=== PATIENT | female | born 1955 | race Caucasian/White ===

== ENCOUNTER 2020-02-06 08:24 | Day surgery (SDC) | payer MEDICARE, SELFPAY ==
[2020-02-01 13:50] VITALS: BMI 29.5
[2020-02-06] MEDS: sodium chloride 0.9% 1,000 ML 30 ML IV (08:46)
--- NOTE | 2020-02-06 08:55 | ANES.PREANE2 ---
Pre-Anesthetic Assessment Pre-Anesthetic Assessment: Height/Weight: Height 1.75 m Weight 90.718 kg Proposed Procedure: Operation Date: 02/06/20 10:15 Proposed Procedures p Colonoscopy 37680 Z12.11(Not Applicable) - Pancho Vaughan MD Was Beta Geraldo taken within 24 hours: Yes Last intake: Intake Last Liquid Date 02/06/20 Last Liquid Time 07:10 Last Solid Date 02/04/20 Social: Social History: Tobacco and No alcohol Exam: Pre-Anes Outpt Exam: alert, oriented x 3, clear to auscultation bilaterally and regular rate & rhythm Airway: Submandibular: WNL Cervical ROM: WNL MP: 2 Dentition: Full Pulmonary: Pulmonary: COPD CV/HEM: CV/HEM: None reported : : None reported Hepatic: Hepatic: None reported GI: GI: None reported Metabolic: Metabolic: Thyroid Musc/skel: Musc/skel: None reported Neuropsych: Neuropsych: None reported Anesthetic Plan: ASA status: 2 Anesthesia: MAC Risk of > 500 ml blood loss (7ml/kg in children): No Meds/Allergies Current Medications: Current Medications Generic Name Dose Route Start Last Admin Trade Name Freq PRN Reason Stop Dose Admin Sodium Chloride 1,000 mls @ 30 ml s/hr 02/06/20 08:45 02/06/20 08:46 Sodium Chloride 0.9% IV 02/07/20 08:44 30 mls/hr .Q24H RAFA Administration Data Anesthesia Cardiac Studies: No Data to Display
--- NOTE | 2020-02-06 11:01 | W.PM.OPSFHP ---
Same Day Surgery H&P Indication for Procedure/HPI DATE OF PROCEDURE: February 06, 2020 CHIEF COMPLAINT/INDICATIONFOR SURGICAL PROCEDURE: Screening colonscopy PREOP DIAGNOSIS: Screening colonoscopy PLANNED PROCEDRUE: Operation Date: 02/06/20 10:15 Proposed Procedures p Colonoscopy 63707 Z12.11(Not Applicable) - Pancho Vaughan MD This is a pleasant 64 years old female patient referred to my practice for screening colonoscopy as the patient never had one before, she denies any bleeding per rectum or any history of colon cancer. ROS All systems have been reviewed negative except as per the above or per problem list Medications/Allergies* Home Medications Medication Instructions Recorded Confirmed Type albuterol sulfate 90 mcg/actuation 2 inh INHALATION Q4H PRN 01/08/20 02/06/20 History breath activated powder inhaler betamethasone valerate 0.1 % 1 applic TOPICAL DAILY 01/08/20 02/06/20 History topical ointment calcium carbonate-vitamin D3 250 1 tab PO DAILY 01/08/20 02/06/20 History mg-125 unit tablet ibuprofen 200 mg tablet 800 mg PO BID tab 01/08/20 02/06/20 History lutein 6 mg tablet 6 mg PO DAILY 01/08/20 02/06/20 History metoprolol tartrate 25 mg tablet 25 mg PO BID 01/08/20 02/06/20 History multivitamin 1 tab PO DAILY 01/08/20 02/06/20 History omega-3 fatty acids 1,000 mg 1,000 mg PO DAILY 01/08/20 02/06/20 History capsule paroxetine HCl 20 mg tablet 40 mg PO DAILY tab 01/08/20 02/06/20 History levothyroxine 50 mcg PO DAILY 02/01/20 02/06/20 History Allergies/Adverse Reactions Allergy/AdvReac Type Severity Reaction Status Date / Time No Known Allergies Allergy Unverified 02/06/20 11:06 Current Medications: Generic Name Dose Route Start Last Admin Trade Name Freq PRN Reason Stop Dose Admin Sodium Chloride 1,000 mls @ 30 mls/hr 02/06/20 08:45 02/06/20 08:46 Sodium Chloride 0.9% IV 02/07/20 08:44 30 mls/hr .Q24H RAFA Administration Pertinent Exam Findings alert, oriented x 3, clear to auscultation bilaterally, regular rate & rhythm and procedure specific exam findings (Abdominal examination nontender nondistended soft) Recommendations Surgery/Procedure today (Screening colonoscopy were indications risks benefits alternatives all discussed with the patient and she did agree to proceed) Coding Level of Care Code Acute Electromechanical Engineer for Demetrio Hernandez
[2020-02-06] MEDS: sodium chloride 0.9% 500 ML 999 ML IV (11:45)
--- NOTE | 2020-02-06 11:49 | SUR.PREOP ---
PATIENTS BLOOD PRESSURE WAS LOW, 89/68 AT TIME OF PREOP. PATIENT DID TAKE MORNING BP MEDICATION. ANESTHESIA RECOMMENDED A FLUID BOLUS OF NS TO RAISE PATIENT BP BEFORE STARTING PROCEDURE. PATIENT WAS GIVEN 1000ML BAG OF NS FLUID. AFTER FLUID BOLUS BP INCREASED TO 100/64. PATIENT WAS THEN TAKEN TO PROCEDURE ROOM.
--- NOTE | 2020-02-06 11:51 | PC.NURSE ---
PT PROCEDURE DELAYED DUE TO BP BEING LOW.
[2020-02-06 12:29] VITALS: BP 88/54; PULSE 70; RESP 18; TEMP 36.2; O2SAT 95
--- NOTE | 2020-02-06 12:30 | ANE.PACU2 ---
Inpatient post-anesthesia follow up: Airway intact: Yes Vital signs: Temperature 97.2 F Pulse Rate 70 Respiratory Rate 18 Blood Pressure 88/54 Pulse Oximetry 95 Oxygen Delivery Me thod Nasal Cannula Oxygen Flow Rate 3 Fraction of Inspir ed Oxygen Hydration adequate: Yes Nausea and vomiting: No Pain level: 1 Mental status: Baseline Additional Comments: Pt instructed to follow up with Dr Irizarry in office tomorrow for BP check to see if BP meds need adjusted. Pt stated she would F/U in am
== END 2020-02-06 12:46 | disposition home or self-care (01) ==
PROVIDERS: Family Provider Family Medicine; Visit Provider Surgery
PROC: 0DJD8ZZ Inspection of Lower Intestinal Tract, Via Natural or Artificial Opening Endoscopic (ICD-10-PCS; CPT 45378; principal; 2020-02-06 10:15)
DX: Z12.11 Encounter for screening for malignant neoplasm of colon (principal); K63.5 Polyp of colon; K62.1 Rectal polyp; J44.9 Chronic obstructive pulmonary disease, unspecified
CPT/HCPCS: 12345; 45385; 88305; J2704

== ENCOUNTER 2021-05-26 14:56 | Outpatient (CLI) | payer MEDICARE, SELFPAY ==
--- NOTE | 2021-05-26 15:06 | MM_ITS ---
WS: [email or web address] BILATERAL SCREENING DIGITAL MAMMOGRAM WITH CAD HISTORY: SCREENING COMPARISON: 11/24/2016 and 02/12/2015 Bilateral CC and MLO views submitted. Computer aided detection analyzed. Breast composition: There are scattered areas of fibroglandular density. No suspicious masses, microc alcifications or architectural distortion. Benign calcifications in each breast. MM/[place] [id number] IMPRESSION: BI-RADS: 2-Benign FOLLOW UP: 1 Year Follow-up
== END 2021-05-26 14:57 | disposition home or self-care (01) ==
LOC: RADSHAW 15:04
PROVIDERS: PCP Family Medicine; Visit Provider Family Medicine
DX: Z12.31 Encounter for screening mammogram for malignant neoplasm of breast (principal)
CPT/HCPCS: 77067

== ENCOUNTER 2022-05-19 09:34 | Outpatient (CLI) | payer BC, SELFPAY ==
--- NOTE | 2022-05-19 09:58 | XR_ITS ---
WS: [email or web address] XR shoulder LT min 2V* [id number] REASON FOR EXAM: SHOULDER PAIN FINDINGS: No fracture. Acromioclavicular joint space relatively well preserved with small marginal osteophytosis superiorly. Severe narrowing of the glenohumeral joint space with deformity of the humeral head and glenoid. Exte nsive subchondral sclerosis and cystic change in the subarticular glenoid and humeral head. Probable small loose bodies in the axillary portion of the joint. The humeral head is superiorly displaced and eroding the undersurface of the acromial process which i ndicates a complete tear of the rotator cuff tendon. Large lucency in the humeral head with partial thin sclerotic border. The abnormality may be a manife station of the severe joint arthropathy, complex geode. XR/XR shoulder LT min 2V* [id number] IMPRESSION: Severe deforming osteoarthritis of the glenohumeral joint. Large lucent area in the humeral head as above. This could relate to the severe arthropathic change however a nonrelated solitary bone lesion could be conside red. An MRI would be useful for this issue. Findings indicating complete tear of the rotator cuff tendon.
--- NOTE | 2022-05-19 09:58 | XR_ITS ---
WS: [email or web address] XR shoulder RT min 2V* [id number] REASON FOR EXAM: SHOULDER PAIN FINDINGS: No fracture or focal bone lesion. Minimal narrowing of the acromioclavicular joint with mild subchondral sclerosis and minimal osteophy tosis. Severe narrowing of the glenohumeral joint with extensive subchondral sclerosis and cystic change in the humeral head and subarticular glenoid. Large overhanging spur of the humeral head. XR/XR shoulder RT min 2V* [id number] IMPRESSION: Severe osteoarthritis of the glenohumeral joint as above.
== END 2022-05-19 09:35 | disposition home or self-care (01) ==
PROVIDERS: PCP Family Medicine; Visit Provider Family Medicine
DX: M19.012 Primary osteoarthritis, left shoulder (principal); M19.011 Primary osteoarthritis, right shoulder
CPT/HCPCS: 73030

== ENCOUNTER 2022-06-23 08:33 | Outpatient (CLI) | payer MEDICARE, SELFPAY ==
--- NOTE | 2022-06-23 08:54 | MR_ITS ---
WS: [email or web address] MRI LEFT SHOULDER NONCONTRAST TECHNIQUE: Sagittal T2, coronal T1, T2 and proton density imaging. Axial gradient PDE imaging. CLINICAL INFORMATION: ABN FINDINGS ON DIAGNOSTIC IMAGING OF LIMBS/L SHOULDER PAIN COMPARISON: None. FINDINGS: Osteopenia. Advanced degenerative arthritis glenohumeral joint with hypertrophic spurring along the g lenoid. T2 hyperintense well-circumscribed cystic-appearing lesion involving the humeral head extendi ng to the cortical surface. Corresponds to findings on the recent radiograph. Associated thinning of the cortex with a small area of cortical fracture. Lesion measures approximately 2.9 x 3.1 CM. A few internal septations. Thin walled sclerotic margin. Diffuse abnormal bone marrow signal involving the visualized humerus. Areas of hemosiderin in the proximal humerus may be due to bony infarcts. Moderat e joint effusion. Calcified intra-articular loose bodies. Hypertrophic spurring involving the humeral head posterior and laterally. Hypertrophic spurring involving the glenoid with flattening of the gle noid. Moderate degenerative arthritis at the AC joint. Narrowing of the subacromial space. Chronic thinning and atrophy of the rotator cuff. Chronic atrophy of the supraspinatus and infraspinatus. Chronic thi nning of the subscapularis tendon distally. Biceps tendon appears intact within the bicipital groove. Tenosynovitis along the biceps tendon. Biceps labral anchor appears intact. Marked degenerative thin yaima of the glenoid labrum. MR/MR shoulder LT wo con* [id number] IMPRESSION: 1. Well-circumscribed cystic-appearing lesion involving the humeral head measu ring 2.9 x 3.1 cm with thin sclerotic margin with associated cortical fracture superiorly. Differential considerations include unicameral bone cyst versus lar ge degenerative subchondral cyst. Metastatic disease and myeloma are additional considerations in a patient this age. Chronic osteomyelitis is an additional c onsideration. 2. Diffuse abnormal bone marrow signal involving the visualized femoral shaft with serpiginous areas of low signal suspicious for bony infarcts. 3. Advanced degenerative arthritis at the glenohumeral joint described above. 4. Chronic atrophy of the rotator cuff. 5. Moderate joint effusion with a few intra-articular loose bodies.
== END 2022-06-23 08:34 | disposition home or self-care (01) ==
PROVIDERS: PCP Family Medicine; Visit Provider Family Medicine
DX: R93.6 Abnormal findings on diagnostic imaging of limbs (principal); M25.412 Effusion, left shoulder; M62.512 Muscle wasting and atrophy, not elsewhere classified, left shoulder; M19.012 Primary osteoarthritis, left shoulder
CPT/HCPCS: 73221

== ENCOUNTER 2022-07-27 14:42 | Outpatient (CLI) | payer MEDICARE, SELFPAY ==
--- NOTE | 2022-07-27 14:52 | XR_ITS ---
WS: [email or web address] SCREENING DEXA SCAN [employer] CLINICAL INFORMATION: PRIMARY OSTEOARTHRITIS COMPARISON: None. FINDINGS: The L1-L4 bone mineral density measures 1.152 g/cm2. This corresponds to a T score score of -0.2 and Z score of 0.6. Left femoral neck bone mineral density measures 0.888 g/cm2. This corresponds to a T score of -1.0 an d Z score of -0.2. Right femoral neck bone mineral density measures 0.872 g/cm2. This corresponds to a T score -1.1of an d Z score of -0.3. Mean femoral neck bone mineral density measures 0.880 g/cm2. This corresponds to a T score of -1.0 an d Z score of -0.2. XR/XR DEXA axial skeleton* [id number] IMPRESSION: Normal bone mineralization lumbar spine. Osteopenia femoral necks at the lower end of the range. Patient's FRAX calculated 10 year probability for major osteoporotic fracture i s 26.0 % and osteoporotic hip fracture is 5.1%.
== END 2022-07-27 14:43 | disposition home or self-care (01) ==
LOC: RAD 14:46
PROVIDERS: PCP Family Medicine; Visit Provider Family Medicine
DX: M19.019 Primary osteoarthritis, unspecified shoulder (principal); M85.88 Other specified disorders of bone density and structure, other site
CPT/HCPCS: 77080

== ENCOUNTER 2023-10-18 14:05 | Outpatient (CLI) | payer MEDICARE, SELFPAY ==
--- NOTE | 2023-10-18 14:14 | XR_ITS ---
WS: [email or web address] DEXA (DUAL ENERGY X-RAY ABSORPTIOMETRY) Bone mineral density was performed using a [employer] machine. HISTORY: ASYMPTOMATIC MENOPAUSAL STATE COMPARISON: 07/27/2022 Lumbar spine BMD (L1-L4): 1.209 T score: 0.1 Z score: 1.4 Total hip BMD: Left: 0.852 g/cm2. T score: -1.2 Z score: -0.1 Right: 0.852 g/cm2. T score: -1.2 Z score: -0.1 Compared to the prior study from 07/27/2022. Lumbar spine bone mineral density has increased by 3.0%. Bilateral hips bone mineral density has decreased by 3.2%. XR/XR DEXA axial skeleton* [id number] IMPRESSION: OSTEOPENIA based upon the WHO classification for females. Significant increase in bone mineral density within the lumbar spine since the prior study. Significant decrease in bone mineral density within the hips since the prior st udy.
== END 2023-10-18 14:06 | disposition home or self-care (01) ==
LOC: RAD 14:05
PROVIDERS: PCP Family Medicine; Visit Provider Family Medicine
DX: Z78.0 Asymptomatic menopausal state (principal); M85.89 Other specified disorders of bone density and structure, multiple sites
CPT/HCPCS: 77080

== ENCOUNTER 2024-02-16 09:37 | Outpatient (CLI) | payer MEDICARE, SELFPAY ==
--- NOTE | 2024-02-16 09:50 | XR_ITS ---
WS: [email or web address] Exam: XR shoulder RT min 2V* [id number] Date/Time of Exam: 02/16/2024 9:54 AM Reason For Exam: PRIMARY OSTEOARTHRITIS Comparison 05/19/2022. Severe degeneration of the glenohumeral joint with [id number] articulation. There is flattening and deformity of the articular surface of the humeral head. Prominent osteophyte projects from the humer al head in the region of the axillary pouch. Minimal degenerative change of the acromion. Normal soft tissues. XR/XR shoulder RT min 2V* [id number] IMPRESSION: 1. End stage osteoarthritis of the glenohumeral joint with [id number].
== END 2024-02-16 09:38 | disposition home or self-care (01) ==
PROVIDERS: PCP Family Medicine; Visit Provider Family Medicine
DX: M19.011 Primary osteoarthritis, right shoulder (principal)
CPT/HCPCS: 73030

== ENCOUNTER 2025-02-26 08:43 | Outpatient (CLI) | payer MEDICARE, SELFPAY ==
--- NOTE | 2025-02-26 08:53 | CT_ITS ---
WS: [email or web address] LDCT LUNG CANCER SCREENING TECHNIQUE: Noncontrast CT of the chest with coronal and sagittal reformatted images. CLINICAL INFORMATION: NICOTINE DEPENDANCE, CIGGRATTES, UNCOMPLICATED COMPARISON: None. DLP: 62.90 mGy.cm DIvol: Mean CTDIvol: 1.20 (mGy) All CT scans at [facility] use at least one of these dose optimization techniques: automated exposure control; mA and/or kV adjustment per patient size (includes targeted exams where dose is matched to clinical indication); or iterative reconstruction. FINDINGS: Aberrant RIGHT subclavian artery. Aortic calcification. Coronary calcification. Scattered tiny micronodules with several in the RIGHT upper lobe. Several tiny calcified granulomas. Small RIGHT perifissural nodules. Few scattered hazy groundglass opacities nonspecific but likely inflammatory. Thoracolumbar scoliosis. Chronic anterior wedging in the lower thoracic spine. Anterior hypertrophic changes. Small esophageal hiatal hernia. LEFT adrenal adenoma measuring 3.1 cm. Moderate LEFT hydronephrosis. This can be further evaluated with CT abdomen pelvis without and with contrast to assess for distal obstruction. No prior recent comparisons. CT/CT lung screening [id number] IMPRESSION: Moderate LEFT hydronephrosis. This can be further evaluated with CT abdomen pel vis without and with contrast to assess for distal obstruction. No prior recent comparisons. LUNG-RADS: 2S-Benign Appearance or Behavior with Significant Findings FOLLOW UP: 12 Month: Continue annual screening with LDCT
== END 2025-02-26 08:44 | disposition home or self-care (01) ==
LOC: RAD 08:44
PROVIDERS: PCP Nurse Practitioner Family; Visit Provider Nurse Practitioner Family
DX: Z12.2 Encounter for screening for malignant neoplasm of respiratory organs (principal); F17.210 Nicotine dependence, cigarettes, uncomplicated
CPT/HCPCS: 71271

== ENCOUNTER 2025-03-21 16:33 | Outpatient (CLI) | payer MEDICARE, SELFPAY ==
--- NOTE | 2025-03-21 16:40 | CT_ITS ---
WS: [email or web address] CT ABDOMEN AND PELVIS WITH AND WITHOUT CONTRAST HISTORY: LEFT KIDNEY HYDRONEPHROSIS, ABNORMAL FINDING ON IMAGING TECHNIQUE: Unenhanced 5 mm axial imaging first performed through the abdomen. Post contrast imaging through the abdomen and pelvis. Oral contrast has been provided. Sagittal and coronal reformats are submitted. All CT scans at [facility] use at least one of these dose optimization techniques: automated exposure control; mA and/or kV adjustment per patient size (includes targeted exams where dose is matched to clinical indication); or iterative reconstruction. CONTRAST: Omnipaque 350; 95 mL IV. DLP: 1115.93 mGy.cm COMPARISON: 02/26/2025 Linear scar at the LEFT lung base. Heart size is normal. Small hiatal hernia. Unremarkable liver, spleen and gallbladder. Mild atrophy of the pancreas. There is a low-attenuation mass along the undersurface of the distal pancreas measuring 2.5 x 2.2 cm. This may be arising from the dorsal surface of the pancreas or the adrenal gland. The adjacent adrenal gland is inseparable from the low-attenuation mass. RIGHT adrenal gland is negative. Mild perinephric stranding around the RIGHT kidney. There are few tiny cortical hypodensities. No renal obstruction. LEFT kidney: LEFT kidney is very slightly enlarged with perinephric stranding. Moderate hydronephrosis secondary to a 6.7 mm calcification in the proximal ureter. Proximal periureteral stranding. Ureter distal to the stone becomes normal caliber. There are a few tiny cortical cysts. Moderate atherosclerosis aorta. No GI tract ischemia. No GI tract obstruction. No small bowel obstruction. Mild constipation. Appendix is not identified. Mild sigmoid diverticulosis without acute diverticulitis. No ascites or adenopathy. Increase in lumbar lordosis. Mild anterior wedging of T11, age-indeterminate fracture. No destructive bone lesions. Remote rib fractures in the posterior inferior LEFT thorax. CT/CT abdomen pelvis wo/w [id number] IMPRESSION: 1. Moderate LEFT hydronephrosis secondary to a 6.7 mm calcification in the pro ximal ureter. 2. Bilateral perinephric stranding, greater on the LEFT. Correlate for acute p yelonephritis. 3. Moderate atherosclerosis aorta and mesenteric arteries. 4. Low-attenuation mass abutting the undersurface of the pancreas and insepara ble from the LEFT adrenal gland. Mass measures 2.5 x 2.2 cm and has negative Ho unsfield units. Most consistent with a benign adrenal adenoma.
[2025-03-21 17:07] LABS: Blood Urea Nitrogen 23 mg/dL (8-23)
[2025-03-21] MEDS: iohexol 350 mg/mL 500 mL Btl (per mL) IV (17:12)
== END 2025-03-21 16:34 | disposition home or self-care (01) ==
LOC: RAD 16:35
PROVIDERS: PCP Nurse Practitioner Family; Visit Provider Nurse Practitioner Family
DX: N13.30 Unspecified hydronephrosis (principal); R91.8 Other nonspecific abnormal finding of lung field; K44.9 Diaphragmatic hernia without obstruction or gangrene; K86.89 Other specified diseases of pancreas; R93.89 Abnormal findings on diagnostic imaging of other specified body structures; K59.00 Constipation, unspecified; K57.30 Diverticulosis of large intestine without perforation or abscess without bleeding
CPT/HCPCS: 74178; 82565; 84520